=== PATIENT | female | born 1995 | race Two or more races ===

== ENCOUNTER 2021-01-08 05:18 | Inpatient (IN) | payer OTHER ==
[~2021-01-08] VITALS: Ht 152.4 cm; Wt 2.7 kg
[2021-01-08] MEDS ORDERED: PRENATAL CAPLE1 EAC1 PO (06:01)
== END 2021-01-11 13:26 | disposition home or self-care (01) | DRG 788 ==
LOC: OB/GYN 05:18 → LDR 05:18 → OB/GYN 01-09 04:02
PROVIDERS: ADMIT Obstetrics & Gynecology; ATTEND Obstetrics & Gynecology
PROC: 4A1HXFZ Monitoring of Products of Conception, Cardiac Rhythm, External Approach (ICD-10-PCS; 2021-01-08)
PROC: 10D00Z1 Extraction of Products of Conception, Low, Open Approach (ICD-10-PCS; principal; 2021-01-09 07:00)
DX: O62.0 Primary inadequate contractions (principal); O69.0XX0 Labor and delivery complicated by prolapse of cord, not applicable or unspecified; Z3A.39 39 weeks gestation of pregnancy; Z37.0 Single live birth; Z20.822 Contact with and (suspected) exposure to COVID-19

== ENCOUNTER 2023-09-14 21:19 | Outpatient (CLI) | payer OTHER ==
[~2023-09-14 21:19] MED LIST: PRENATAL CAPLE1 EAC1 PO
[2023-09-14 23:15] LABS: HEMATOCRIT 33.9 % (36.0-45.00); HEMOGLOBIN 11.5 g/dL (12.0-15.00); MEAN CELL VOLUME 89.9 fL (80.00-100.00); MEAN CORPUSCULAR HEMOGLOBIN 30.5 pg (27.00-32.0); PLATELET COUNT 146 K/uL (150-450); RED BLOOD COUNT 3.77 M/uL (4.00-6.00); RED CELL DISTRIBUTION WIDTH 13.7 % (11.5-14.5)
== END 2023-09-15 08:39 | disposition home or self-care (01) ==
LOC: PRENATAL 21:19 → OBS/DEL 21:19 → PRENATAL 09-15 08:39
PROVIDERS: Specialist; ATTEND Obstetrics & Gynecology
DX: O47.1 False labor at or after 37 completed weeks of gestation (principal); Z3A.37 37 weeks gestation of pregnancy

== ENCOUNTER 2023-09-27 07:00 | Inpatient (IN) | payer OTHER ==
[~2023-09-27] VITALS: Ht 157.5 cm; Wt 3.2 kg
[2023-09-28 08:30] LABS: URINE APPEARANCE Clear; URINE BILIRRUBIN Negative (NEGATIVE); URINE BLOOD Negative; URINE COLOR Yellow; URINE EPITHELIAL CELLS 74.7 uL (0.0-38.8); URINE GLUCOSE Negative (NEGATIVE); URINE LEUKOCYTE Negative; URINE NITRATE Negative; URINE PROTEIN Negative (NEGATIVE); URINE RBC 8.7 uL (0.0-20.8); URINE WBC 12.8 uL (0.0-23.2)
[2023-09-28 08:37] LABS: HEMOGLOBIN 11.4 g/dL (12.0-15.00); MEAN CELL VOLUME 89.1 fL (80.00-100.00); MEAN CORPUSCULAR HEMOGLOBIN 30.8 pg (27.00-32.0); MEAN CORPUSCULAR HGB CONC 34.6 g/dl (32.0-36.0); PLATELET COUNT 137 K/uL (150-450); RED CELL DISTRIBUTION WIDTH 13.8 % (11.5-14.5)
[2023-09-28 08:54] LABS: INR < 0.93; PARTIAL THROMBOPLASTIN TIME 26.8 SECONDS (22.0-34.0); PROTHROMBIN TIME 9.8 SECONDS (9.0-11.5)
[2023-09-28 20:29] LABS: HEMATOCRIT 30.1 % (36.0-45.00); HEMOGLOBIN 10.5 g/dL (12.0-15.00); MEAN CELL VOLUME 89.8 fL (80.00-100.00); MEAN CORPUSCULAR HEMOGLOBIN 31.3 pg (27.00-32.0); MEAN CORPUSCULAR HGB CONC 34.8 g/dl (32.0-36.0); RED BLOOD COUNT 3.35 M/uL (4.00-6.00); RED CELL DISTRIBUTION WIDTH 13.5 % (11.5-14.5)
[2023-09-28 20:30] LABS: PLATELET COUNT 127 K/uL (150-450)
[2023-09-30 17:44] LABS: HEMATOCRIT 28.8 % (36.0-45.00); HEMOGLOBIN 9.9 g/dL (12.0-15.00); MEAN CELL VOLUME 89.9 fL (80.00-100.00); MEAN CORPUSCULAR HGB CONC 34.4 g/dl (32.0-36.0); PLATELET COUNT 150 K/uL (150-450); RED CELL DISTRIBUTION WIDTH 13.7 % (11.5-14.5)
[2023-09-30 20:38] LABS: URINE APPEARANCE Clear; URINE BILIRRUBIN Negative (NEGATIVE); URINE BLOOD Large; URINE COLOR Yellow; URINE GLUCOSE Negative (NEGATIVE); URINE LEUKOCYTE Negative; URINE NITRATE Negative; URINE PROTEIN Negative (NEGATIVE)
[2023-09-30 20:42] LABS: URINE BACTERIA 243.1 uL (0.0-1933); URINE EPITHELIAL CELLS 16.8 uL (0.0-38.8); URINE RBC 603.1 uL (0.0-20.8); URINE WBC 10.7 uL (0.0-23.2)
== END 2023-10-01 12:41 | disposition home or self-care (01) | DRG 785 ==
LOC: LDR 09-28 07:16 → O/R 09-28 13:27 → OB/GYN 09-28 15:51
PROVIDERS: Obstetrics & Gynecology; ADMIT Obstetrics & Gynecology; ATTEND Obstetrics & Gynecology
PROC: 0UB70ZZ Excision of Bilateral Fallopian Tubes, Open Approach (ICD-10-PCS; 2023-09-28)
PROC: 4A1HXCZ Monitoring of Products of Conception, Cardiac Rate, External Approach (ICD-10-PCS; 2023-09-28)
PROC: 10D00Z1 Extraction of Products of Conception, Low, Open Approach (ICD-10-PCS; principal; 2023-09-28 14:30)
DX: O34.211 Maternal care for low transverse scar from previous cesarean delivery (principal); Z3A.39 39 weeks gestation of pregnancy; Z37.0 Single live birth; Z20.822 Contact with and (suspected) exposure to COVID-19; Z30.2 Encounter for sterilization